=== PATIENT | female | born 1940 | race Asian ===

== ENCOUNTER 2019-11-20 11:34 | Emergency (ER) | payer OTHER ==
[2019-11-20 11:37] VITALS: BP 130/70; PULSE 74; TEMP 98.7; BMI 23.5
--- NOTE | 2019-11-20 12:39 | PDOC ---
History of Present Illness - General Chief Complaint: Respiratory Stated Complaint: COUGH, ABD PAIN Time Seen by Provider: 11/20/19 11:36 - History of Present Illness Initial Comments: HPI Pt is an 79yo F with PMH DM who presents with nonproductive cough [id number]. States that she was seen by her PCP and told to get CT, which she did not want due to radiation. States that episodes of coughing that are worse at night, mostly nonproductive, but with occasional clear phlegm. Reports substernal chest congestion/"choking sensation" associated with coughing. States that 10-20 years ago, was annually hospitalized for episodes of coughing due to "emphysema". States that her daughter gave her "antibiotics" for 1 week without improvement in symptoms. Has been occasionally using inhaler up to 3x at night without improvement in symptoms. Reports associated SOB, RUQ/RLL pain, and sweating with episodes of coughing. Denies f/c, chest pain, hemoptysis, n/v, diarrhea/constipation, peripheral edema. Denies recent travel, sick contacts. PCP: Kit PMH: DM (not on medication) PSH: hernia repair, appendectomy Meds: denies Allergies: NKDA Social: denies tobacco use, denies smokers in household Review of Systems CONSTITUTIONAL: reports diaphoresis,denies fever, chills, generalized weakness, malaise, loss of appetite HEENT:denies rhinorrhea, nasal congestion, sore throat CARDIOVASCULAR:denies chest pain, syncope, palpitations, irregular heart rate, lightheadedness, peripheral edema RESPIRATORY:reports cough, shortness of breath; denies hemoptysis GASTROINTESTINAL: denies nausea, vomiting, diarrhea, constipation, melena, hematochezia GENITOURINARY:denies dysuria, frequency, hematuria, flank pain, MUSCULOSKELETAL:denies myalgia, arthralgia HEMATOLOGIC/IMMUNOLOGIC:denies easy bleeding, easy bruising ENDOCRINE: denies unexplained weight gain, unexplained weight loss NEUROLOGIC:denies headache, loss of consciousness, dizziness SKIN:denies rash, itching, pallor Physical Exam General: awake, alert, oriented, in mild distress, well developed, well nourished Head: normocephalic, atraumatic Eyes: PERRL, EOMI, anicteric sclera, conjunctiva clear ENT: Auricles normal inspection, hearing grossly normal, oropharynx clear without exudates, moist mucous membranes Neck: supple, normal ROM, Lung: decreased air entry on right side, no crackles/wheezing; Heart: RRR, normal S1, S2, no murmurs appreciated Abdomen: soft, non tender, normoactive bowel sounds, no guarding, rebound, masses Extremities: no edema, no erythema or tenderness, DP/PT pulses 2+ and symmetric Neuro: CN2-12 grossly intact, moves all extremities, normal speech, sensation intact Skin: warm, dry, normal skin turgor, capillary refill <2 seconds, no rashes or lesions noted MDM Pt is an 79yo F with PMH DM who presents with nonproductive cough [id number]. Vitals WNL DDx including but not limited to: pneumonia, CHF, asthma Workup: CBC, CMP, BNP, trop, cxr, ekg EKG: normal sinus rhythm, HR 69bpm, CO 152ms, QRS 70ms, QTc 426ms, TWI in AVR, V1, V2 CXR - no pneumothorax or pleural effusion. midline airway, appropriate vascular markings, no blunting of costophrenic angle, no cardiomegaly, as read by ED staff - as read by radiologist: hyperinflation, clear lungs, possible right basilar nipple shadow - Will advise patient of report and follow up xray with PCP Labs: electrolytes WNL, trop WNL - pending CBC and BNP Spoke with patients pharmacy - only prescription was alendronate - Will order duoneb and reassess Reports slight improvement with chest congestion following duoneb - Will send prescription for albuterol and prednisone 11/20/19 15:05 - issue with lab; CBC to be sent to [facility] Labs: no leukocytosis, no anemia, BNP WNL Re-assessment: Patient stable for discharge. Informed of all lab and imaging results. Given follow up instructions and strict return precautions. Patient expressed understanding and agree to plan Disposition: Discharge Past History - Medical History Allergies/Adverse Reactions: Allergies Allergy/AdvReac Type Severity Reaction Status Date / Time No Known Allergies Allergy Verified 11/20/19 11:35 Home Medications: Ambulatory Orders Albuterol Sulfate Inhaler - [Ventolin HFA Inhaler -] 1 - 2 inh PO QID PRN #1 inhaler 11/20/19 Azithromycin 250 mg PO DAILY #4 tablet 11/20/19 Azithromycin [Zithromax] 500 mg PO ONCE #1 tablet 11/20/19 Prednisone [Prednisone 50 MG TABLETS] 50 mg PO DAILY #5 tablet 11/20/19 COPD: No - Psycho-Social/Smoking History Smoking History: Never smoked Have you smoked in the past 12 months: No Information on smoking cessation initiated: No - Substance Abuse Hx (Audit-C & DAST Scrn) How often the patient has a drink containing alcohol: Never Score: In Men: 4 or > Positive; In Women: 3 or > Positive: 0 Screen Result (Pos requires Nsg. Audit-10AR): Negative In the last yr the pt used illegal drug/Rx for NonMed reason: No Score: Yes response is considered Positive: 0 Screen Result (Positive result requires Nsg. DAST-10): Negative *Physical Exam - Vital Signs Last Vital Signs Temp Pulse Resp BP Pulse Ox 98.7 F 74 18 130/70 99 11/20/19 11:34 11/20/19 11:34 11/20/19 11:34 11/20/19 11:34 11/20/19 11:34 ED Treatment Course - LABORATORY CBC & Chemistry Diagram: 11/20/19 15:22 11/20/19 12:42 Discharge - Discharge Information Problems reviewed: Yes Clinical Impression/Diagnosis: Cough Condition: Stable Disposition: HOME - Additional Discharge Information Prescriptions: Azithromycin 250 mg PO DAILY #4 tablet Prednisone [Prednisone 50 MG TABLETS] 50 mg PO DAILY #5 tablet Albuterol Sulfate Inhaler - [Ventolin HFA Inhaler -] 1 - 2 inh PO QID PRN #1 inhaler PRN Reason: Short Of Breath/Wheezing Azithromycin [Zithromax] 500 mg PO ONCE #1 tablet - Follow up/Referral - Patient Discharge Instructions Patient Printed Discharge Instructions: DI for Cough -- Adult Additional Instructions: You came into the ER for cough and chest congestion. In the ED, you were evaluated with blood work, electrocardiogram (EKG), and chest xray. Your blood work was normal. Your EKG was also normal. Your chest xray did not indicate any acute process, however there was a right breast nipple shadow - you should follow up with your primary doctor for a repeat image with nipple marker. You were given 1 dose of duoneb inhaler here with improvement in chest congestion. You do not appear to be an acute need for immediate hospitalization. You were advised to follow up with your primary care doctor within 1 week. You should follow up with your primary doctor for a repeat chest x-ray with sagger maker - you were given a copy of your chest xray report from your visit today. You were given prescriptions for azithromycin, albuterol inhaler, and predni sone. Azithromycin: Take the 500mg tablet TODAY. Take the 250mg tablet once a day for 4 days, starting tomorrow. Prednisone: take one tablet a day for 5 days Albuterol inhaler: take one to two puffs, up to 4 times a day, only as needed Come back to the ER immediately with any new or worsening concerns, such as high fever, trouble breathing, or if your cough gets worse. Thank you for coming to the [facility]. We hope you feel better soon! - Post Discharge Activity
[2019-11-20 13:56] LABS: ALBUMIN 4.2 g/dl (3.4-5.0); BILIRUBIN,TOTAL 0.8 mg/dl (0.2-1); CALCIUM 9.5 mg/dl (8.5-10); CREATININE 0.5 mg/dl (0.55-1.3); POTASSIUM 4.1 mmol/L (3.5-5.1); TOT PROT 6.5 g/dl (6.4-8.2)
[2019-11-20] MEDS ORDERED: ALBUTEROL SO4 2.5/IPRATROPIUM 0.5 INH SOL 3 ML VIAL.NEB. NEB SCH (14:00)
[2019-11-20] MEDS ORDERED: ALBUTEROL SO4 2.5/IPRATROPIUM 0.5 INH SOL 3 ML VIAL.NEB. NEB ONE ×2 (14:09→14:13)
[2019-11-20] MEDS ORDERED: AZITHROMYCIN 250 MG TABLET PO ONE (14:50)
--- NOTE | 2019-11-20 15:00 | PDOC ---
Attending Attestation - Resident Resident Name: DooleyLynn - ED Attending Attestation I have performed the following: I have examined & evaluated the patient, The case was reviewed & discussed with the resident, I agree w/resident's findings & plan, Exceptions are as noted - HPI HPI: 11/20/19 14:55 79 F with h/o DM presents to ED with cough x 1 month. Pt reports nonproductive cough that is worse at night. Also endorses chest congestion but denies chest pain. Denies any leg swelling. Pt notes that she has a history of emphysema despite never smoking. She was prescribed an albuterol inhaler 2 years ago that she has been using with minimal relief. Pt denies F/C. - Physicial Exam PE: 11/20/19 14:57 GENERAL: Awake, alert, and fully oriented, in no acute distress. HEAD: No signs of trauma EYES: PERRLA, EOMI, sclera anicteric, conjunctiva clear ENT: Auricles normal inspection, hearing grossly normal, nares patent, oropharynx clear without exudates. Moist mucosa NECK: Nontender, no stepoffs, Normal ROM, supple, no lymphadenopathy, JVD, or masses LUNGS: Breath sounds equal, clear to auscultation bilaterally. No wheezes, and no crackles HEART: Regular rate and rhythm, normal S1 and S2, no murmurs, rubs or gallops ABDOMEN: Soft, nontender, normoactive bowel sounds. No guarding, no rebound. No masses EXTREMITIES: Normal range of motion, no edema. No clubbing or cyanosis. No cords, erythema, or tenderness NEUROLOGICAL: Cranial nerves II through XII intact. 5/5 strength and sensation in all extremities, Normal speech, normal gait, normal cerebellar function SKIN: Warm, Dry, normal turgor, no rashes or lesions noted. - Medical Decision Making 11/20/19 14:58 79 F with cough x 1 month. - Labs - CXR - Trial of nebs CXR with no acute process Labs unremarkable Pt reports some improvement s/p Duoneb Will initiate albuterol tx with short course of oral steroids Also start Z-pack for atypical pneumonia. Pt is well appearing, with normal vitals. Clinically stable for DC at this time. I discussed the physical exam findings, ancillary test results and final diagnoses with the patient. I answered all of the patient's questions. The patient was satisfied with the care received and felt comfortable with the discharge plan and treatment plan. The patient agrees to follow up with the primary care physician within 24-72 hours. Discharge - Discharge Information Problems reviewed: Yes Clinical Impression/Diagnosis: Cough Condition: Stable Disposition: HOME - Additional Discharge Information Prescriptions: Azithromycin 250 mg PO DAILY #4 tablet Prednisone [Prednisone 50 MG TABLETS] 50 mg PO DAILY #5 tablet Albuterol Sulfate Inhaler - [Ventolin HFA Inhaler -] 1 - 2 inh PO QID PRN #1 inhaler PRN Reason: Short Of Breath/Wheezing Azithromycin [Zithromax] 500 mg PO ONCE #1 tablet - Follow up/Referral - Patient Discharge Instructions Patient Printed Discharge Instructions: DI for Cough -- Adult Additional Instructions: You came into the ER for cough and chest congestion. In the ED, you were evaluated with blood work, electrocardiogram (EKG), and chest xray. Your blood work was normal. Your EKG was also normal. Your chest xray did not indicate any acute process, however there was a right breast nipple shadow - you should follow up with your primary doctor for a repeat image with nipple marker. You were given 1 dose of duoneb inhaler here with improvement in chest congestion. You do not appear to be an acute need for immediate hospitalization. You were advised to follow up with your primary care doctor within 1 week. You should follow up with your primary doctor for a repeat chest x-ray with stopper maker - you were given a copy of your chest xray report from your visit today. You were given prescriptions for azithromycin, albuterol inhaler, and prednisone. Azithromycin: Take the 500mg tablet TODAY. Take the 250mg tablet once a day for 4 days, starting tomorrow. Prednisone: take one tablet a day for 5 days Albuterol inhaler: take one to two puffs, up to 4 times a day, only as needed Come back to the ER immediately with any new or worsening concerns, such as high fever, trouble breathing, or if your cough gets worse. Thank you for coming to the [facility] ER. We hope you feel better soon! - Post Discharge Activity
[2019-11-20 15:36] LABS: N-TERMINAL BNP 58.1 pg/ml (5-450)
[2019-11-20 15:45] LABS: BASO % 0.4 % (0-2.0); EOS % 5.2 % (0-4.5); HEMATOCRIT 36.8 % (32.4-45.2); HEMOGLOBIN 12.4 GM/dl (10.7-15.3); LYMPH % 27.8 % (8-40); MCH 31.3 pg (25.7-33.7); MCHC 33.7 g/dl (32.0-36.0); MEAN CELL VOLUME 92.9 fl (80-96); MEAN PLT VOLUME 8.8 fl (7.5-11.1); MONO % 9.8 % (3.8-10.2); NEUT % 56.8 % (42.8-82.8); PLATELET COUNT 252 K/MM3 (134-434); RBC 3.96 M/mm3 (3.60-5.2); RDW 12.5 % (11.6-15.6); WHITE BLOOD COUNT 4.6 K/mm3 (4.0-10.8)
--- NOTE | 2019-11-21 11:41 | EKG ---
Test Reason : Blood Pressure : / mmHG Vent. Rate : 069 BPM Atrial Rate : 069 BPM P-R Int : 152 ms QRS Dur : 070 ms QT Int : 398 ms P-R-T Axes : 057 053 060 degrees QTc Int : 426 ms NORMAL SINUS RHYTHM NORMAL ECG NO PREVIOUS ECGS AVAILABLE Confirmed by YENY SINGH MD ([id number]) on 11/21/2019 11:40:53 AM Referred By: SHILPI MILLER Confirmed By:YENY SINGH MD
== END 2019-11-20 16:00 | disposition home or self-care (01) ==
LOC: FER 11:34
PROC: 3E0F7GC Introduction of Other Therapeutic Substance into Respiratory Tract, Via Natural or Artificial Opening (ICD-10-PCS; principal; 2019-11-20)
DX: R05 Cough (principal)
CPT/HCPCS: 36415; 71046-TC-FY; 80053; 82550; 83880; 84484; 85025; 93005; 99285-25